=== PATIENT | female | born 1990 | race Caucasian/White ===

== ENCOUNTER 2020-05-13 11:30 | Emergency (ER) | payer OTHER, SELFPAY ==
[2020-05-13 12:00] VITALS: BP 132/87; PULSE 87; RESP 18; TEMP 36.7; O2SAT 100
--- NOTE | 2020-05-13 12:37 | ED.GENADULT ---
HPI - General Adult General Chief complaint: Upper Respiratory Infection Stated complaint: sore throat Time Seen by Provider: 05/13/20 12:37 Source: patient and RN notes reviewed Mode of arrival: ambulatory Limitations: no limitations History of Present Illness HPI narrative: 29-year-old female presents with complaints of sore throat, otalgia with drainage, intermittent nausea, and headache (not the worst of her life) for 1 day. Amanda reports increasing symptoms throughout the night with sore throat and light green ear drainage. Ibuprofen 400mg, last on 05/12/2020. No high fevers, drooling, neck or throat swelling. Pain is bilateral. Hurts to swallow. Exacerbation factors consist of eating and drinking. Rhinorrhea and nasal congestion. No voice change. No nausea, vomiting, or abdominal pain. Tolerating liquids well. Denies dyspnea, difficulty swallowing, facial pain, foreign body sensation, and rash. Remains active. LMP 04/30/2020. The patient reports she have not been diagnosed with COVID-19. The patient reports she is not waiting for the results of a COVID-19 lab test. The patient reports she do not have chills, weakness, or fatigue. The patient reports she do not have a new or worsening cough or shortness of breath. Denies chest pain. The patient reports she do not have an loss of taste or smell, and diarrhea. Denies recent traveling. Denies concerns for COVID-19 or exposures been home with limited outdoor exposure except for essential household needs, work, and return home. At this time, patient is not suspected of having COVID-19. Some parts of this dictation were generated by voice recognition software and may contain typographical and/or grammatical inaccuracies. Related Data Allergies Allergy/AdvReac Type Severity Reaction Status Date / Time No Known Allergies Allergy Verified 05/13/20 11:59 Review of Systems Review of Systems: Narrative: CONSTITUTIONAL: Denies fever, chills, sweats. EYES: Denies visual changes, redness, discharge. ENT: Complains of rhinorrhea, otalgia, sore throat, congestion. CARDIOVASCULAR: Denies chest pain, palpitations, edema. RESPIRATORY: Denies dyspnea, wheezing, cough. GASTROINTESTINAL: Denies abdominal pain, nausea, vomiting, diarrhea. SKIN: Denies rash or itching. MUSCULOSKELETAL: Denies acute back pain, joint pain, or myalgia. NEUROLOGIC: Denies numbness or focal weakness. Complains of intermittent BATES. PSYCHIATRIC: Denies anxiety or depression. All systems reviewed & are unremarkable except as noted in HPI and below. [facility] Past Medical History Medical History delivery delivered Depression Ex-smoker for more than 1 year Surgical History Surgical History (Updated 05/21/20 @ 16:42 by PASCALE Silva) H/O section History of eye surgery RT Family History Family History (Updated 05/21/20 @ 16:45 by PASCALE Silva) Father , motorcycle accident Medical history unknown Mother Alive and well Social History Social History (Updated 05/21/20 @ 16:47 by PASCALE Silva) Smoking status: Former smoker Tobacco type: cigarettes Second hand tobacco smoke exposure: No Smoking end date: 04/18/19 Alcohol intake: current Substance use: never Substance use type: does not use Living arrangements: with family Occupation/Education: occupation Gender identity (if verbalized by the patient): Female Sexual Orientation (if Verbalized by the Patient): Straight or Heterosexual Comments At time of signature, agree with nurse past medical, surgical, social, and family history. There is no relevant family history pertinent to the presenting complaint. Exam Narrative: Exam Narrative: GENERAL: This is a well-nourished, well-developed patient, in no apparent distress. Speaks in full sentences without deficits and ambulates with steady gait without dyspnea. HEAD: Normocephalic, atraumatic. EYES: P
[2020-05-14 15:25] LABS: SARS-CoV-2 RNA PCR Negative
== END 2020-05-13 13:00 | disposition home or self-care (01) ==
PROVIDERS: Emergency Provider Nurse Practitioner Family
DX: J02.9 Acute pharyngitis, unspecified (principal); Z20.822 Contact with and (suspected) exposure to COVID-19
CPT/HCPCS: 87081; 87804; 87880; 99213; C9803; G0463; U0003; U0005